=== PATIENT | female | born 1990 | race Two or more races ===

== ENCOUNTER 2020-04-29 15:18 | Emergency (ER) | payer OTHER ==
[~2020-04-29] VITALS: Ht 165.1 cm; Wt 79.4 kg
[2020-04-29 15:20] VITALS: BP 118/81
--- NOTE | 2020-04-29 15:37 | NUR ---
SEEN AND EXAMINED BY .
[2020-04-29] MEDS ORDERED: EMTRICITABINE/TENOFOVIR 1 TAB PO SCH (16:00)
[2020-04-29 16:26] LABS: BASOPHILS % (AUTO) 0.4 % (0.0-2.0); EOSINOPHILS % (AUTO) 0.9 % (0.0-6.0); HEMATOCRIT 38 % (33-45); LYMPHOCYTES # (AUTO) 2.2 /CMM (0.8-4.8); LYMPHOCYTES % (AUTO) 35.1 % (20.0-44.0); MEAN CORPUSCULAR HGB CONC 34 g/dl (31.0-36.0); MEAN CORPUSCULAR VOLUME 92 fL (82-100); MONOCYTES # (AUTO) 0.4 /CMM (0.1-1.30); MONOCYTES % (AUTO) 6.6 % (2.0-12.0); NEUTROPHILS # (AUTO) 3.6 /CMM (1.8-8.9); PLATELET COUNT (AUTO) 267 /CMM (150-450); RED BLOOD CELL COUNT(AUTO) 4.14 MIL/uL (4.0-5.2); WHITE BLOOD COUNT (AUTO) 6.3 K/uL (4.3-11.0)
[2020-04-29] MEDS: TENOFOVIR DISOPROXIL FUMARATE 300 MG TABLET PO ONE (16:26)
[2020-04-29] MEDS: RALTEGRAVIR POTASSIUM 400 MG TABLET PO ONE (16:26)
[2020-04-29] MEDS: EMTRICITABINE 200 MG CAPSULE PO ONE (16:29)
--- NOTE | 2020-04-29 16:30 | NUR ---
Patient discharged to home in stable condition. Written and verbal after care instructions given. Patient verbalizes understanding of instruction.
[2020-04-29 17:08] LABS: CALCIUM, SERUM 9.1 mg/dL (8.5-10.1); CREATININE 0.6 mg/dL (0.6-1.3); POTASSIUM 3.6 mmol/L (3.5-5.1)
[2020-04-29 17:13] LABS: ALBUMIN 4.1 g/dL (3.4-5.0); BILIRUBIN,DIRECT 0.2 mg/dL (0.0-0.2); BILIRUBIN,TOTAL 0.7 mg/dL (0.2-1.0); TOTAL PROTEIN, SERUM 7.9 g/dL (6.4-8.2)
== END 2020-04-29 16:35 | disposition home or self-care (01) ==
LOC: ER 15:23
DX: T14.8XXA Other injury of unspecified body region, initial encounter (principal); Z77.21 Contact with and (suspected) exposure to potentially hazardous body fluids; Z88.0 Allergy status to penicillin; W46.0XXA Contact with hypodermic needle, initial encounter; Y93.89 Activity, other specified; Y92.89 Other specified places as the place of occurrence of the external cause; Y99.0 Civilian activity done for income or pay
CPT/HCPCS: 36415; 80048-TC; 80076-TC; 85025-TC; 86705; 86706; 86803; 87806

== ENCOUNTER 2020-05-31 16:28 | Outpatient (CLI) | payer OTHER | END 2020-05-31 23:59 | disposition home or self-care (01) | LOC: LAB 16:28 | PROVIDERS: ATTEND General Practice | DX: Z02.89 Encounter for other administrative examinations (principal) | CPT/HCPCS: 36415; 86317; 86803; 87806 ==

== ENCOUNTER 2020-06-23 14:44 | Outpatient (CLI) | payer OTHER ==
[2020-06-23] MEDS ORDERED: HEPATITIS B VIRUS VACCINE-PF 20 MCG/VIAL VIAL IM ONE (15:18)
[2020-06-25] MEDS ORDERED: PIPERACILLIN /TAZOBACTAM 3.375 G VIAL IV ONE (03:52)
== END 2020-06-23 23:59 | disposition home or self-care (01) ==
LOC: MSC 14:44
PROVIDERS: ATTEND Internal Medicine
DX: Z23 Encounter for immunization (principal)
CPT/HCPCS: 96372; J2543

== ENCOUNTER 2020-07-12 09:46 | Outpatient (CLI) | payer BC ==
[2020-07-12] MEDS ORDERED: OLOP2.5D12 EACHEYE (16:31)
[2020-07-12] MEDS ORDERED: TRIA15CR2 TP (16:32)
== END 2020-07-12 23:59 | disposition home or self-care (01) ==
LOC: MSC 09:46
PROVIDERS: ATTEND Internal Medicine
DX: U07.1 COVID-19 (principal)
CPT/HCPCS: 87426; 99211; C9803

== ENCOUNTER 2020-07-12 15:59 | Emergency (ER) | payer BC, OTHER ==
[~2020-07-12] VITALS: Ht 165.1 cm; Wt 76.2 kg
[2020-07-12 16:08] VITALS: BP 135/79
[2020-07-12] MEDS ORDERED: OLOP2.5D12 EACHEYE (16:31)
[2020-07-12] MEDS ORDERED: TRIA15CR2 TP (16:32)
--- NOTE | 2020-07-12 16:46 | NUR ---
COVID SWAB DONE AND SENT TO LAB
== END 2020-07-12 16:46 | disposition home or self-care (01) ==
LOC: ER 16:01
DX: U07.1 COVID-19 (principal); L30.9 Dermatitis, unspecified; Z88.0 Allergy status to penicillin
CPT/HCPCS: 99283; C9803; U0003

== ENCOUNTER 2020-08-04 13:34 | Emergency (ER) | payer OTHER ==
[~2020-08-04] VITALS: Ht 165.1 cm; Wt 73.5 kg
[~2020-08-04 13:34] MED LIST: OLOP2.5D12 EACHEYE; TRIA15CR2 TP
[2020-08-04 13:38] VITALS: BP 126/80
== END 2020-08-04 14:11 | disposition home or self-care (01) ==
LOC: ER 13:37
DX: Z77.21 Contact with and (suspected) exposure to potentially hazardous body fluids (principal); Z88.0 Allergy status to penicillin; Z79.899 Other long term (current) drug therapy
CPT/HCPCS: 36415; 86706; 86803; 87806

== ENCOUNTER 2020-09-15 14:46 | Outpatient (CLI) | payer BC, OTHER | END 2020-09-15 23:59 | disposition home or self-care (01) | LOC: MSC 14:46 | PROVIDERS: ATTEND Internal Medicine | DX: H66.90 Otitis media, unspecified, unspecified ear (principal); Z86.16 Personal history of COVID-19 ==

== ENCOUNTER 2020-11-22 13:44 | Outpatient (CLI) | payer BC, OTHER ==
[2020-11-22] MEDS ORDERED: HEPATITIS B VIRUS VACCINE-PF 20 MCG/VIAL VIAL IM ONE (13:45)
== END 2020-11-22 23:59 | disposition home or self-care (01) ==
LOC: MSC 13:44
PROVIDERS: ATTEND Internal Medicine
DX: Z23 Encounter for immunization (principal)
CPT/HCPCS: 96372

== ENCOUNTER 2021-03-01 00:05 | Emergency (ER) | payer OTHER ==
[~2021-03-01] VITALS: Ht 165.1 cm; Wt 79.4 kg
[2021-03-01 01:32] VITALS: BP 118/73
== END 2021-03-01 01:35 | disposition home or self-care (01) ==
LOC: ER 00:10
DX: Z20.822 Contact with and (suspected) exposure to COVID-19 (principal); Z88.0 Allergy status to penicillin
CPT/HCPCS: 99283; C9803; U0003

== ENCOUNTER 2021-03-04 23:12 | Emergency (ER) | payer OTHER ==
[~2021-03-04] VITALS: Ht 165.1 cm; Wt 74.8 kg
[2021-03-04 23:15] VITALS: BP 110/73
== END 2021-03-05 00:36 | disposition home or self-care (01) ==
LOC: ER 23:14
DX: R05 Cough (principal); Z88.0 Allergy status to penicillin; Z79.899 Other long term (current) drug therapy
CPT/HCPCS: 71045-TC

== ENCOUNTER 2021-06-23 01:33 | Emergency (ER) | payer OTHER ==
[~2021-06-23] VITALS: Ht 165.1 cm; Wt 77.6 kg
[2021-06-23 01:41] VITALS: BP 125/76
[2021-06-23] MEDS ORDERED: LIDOCAINE 0.5%-EPI 1:200,000 50 ML VIAL ONE (17:48)
--- NOTE | 2021-06-29 16:20 | NUR ---
CALLED AND GOT TESTED YESTERDAY WHICH WAS NEGATIVE.
== END 2021-06-23 05:14 | disposition home or self-care (01) ==
LOC: ER 01:34
DX: U07.1 COVID-19 (principal); J02.9 Acute pharyngitis, unspecified; R51.9 Headache, unspecified
CPT/HCPCS: 87426; 99283; C9803; U0003; J3490